=== PATIENT | female | born 2000 | race Caucasian/White ===

== ENCOUNTER 2022-02-07 21:56 | Emergency (ER) | payer SELFPAY ==
[2022-02-08 18:03] LABS: SARS-CoV-2 PCR by NAA DETECTED (NotDetected)
== END 2022-02-07 23:18 | disposition home or self-care (01) ==
LOC: CSHERS 21:56
DX: J06.9 Acute upper respiratory infection, unspecified (principal); R06.02 Shortness of breath; Z20.822 Contact with and (suspected) exposure to COVID-19
CPT/HCPCS: U0003; U0005

== ENCOUNTER 2022-04-30 17:38 | Emergency (ER) | payer SELFPAY ==
[2022-04-30 19:09] LABS: Bilirubin Neg (Negative); Blood, Urine 150 (Negative); Clarity Cloudy (Clear); Glucose, Urine (Dipstick) Normal (Negative); Ketone, Urine Negative (Negative); Leukocyte 500 (Negative); Nitrite Negative (Negative); Protein, Urine (Dipstick) 30 mg/dl (Neg-Trace); Specific Gravity, Urine 1.025 (1.002-1.036); Urobilinogen Normal mg/dL (Less than 2)
[2022-04-30 19:10] LABS: Pregnancy Test - Urine (BHCG) Negative (Negative)
[2022-04-30 19:11] LABS: Pregu Control Background? CLEAR/WHITE (CLR/WHITE); Pregu Control Bar Appear? YES (CONTROL BAR); Specific Gravity 1.025 (1.002-1.036)
[2022-04-30 19:43] LABS: RBC/HPF 0-3 HPF (0-3); WBC/HPF 21-50 HPF (0-3)
[2022-04-30 19:44] LABS: Bacteria/HPF 3+ HPF (None Seen)
== END 2022-04-30 19:32 | disposition home or self-care (01) ==
LOC: CSHERS 17:38
DX: N39.0 Urinary tract infection, site not specified (principal)
CPT/HCPCS: 81003; 81015; 81025; 87086; 99283

== ENCOUNTER 2023-11-04 15:34 | Emergency (ER) | payer SELFPAY ==
[2023-11-04] MEDS ORDERED: Dexamethasone 10 MG/ML VIAL ONE (17:02)
== END 2023-11-04 17:08 | disposition home or self-care (01) ==
LOC: CSHERS 15:34
DX: J02.9 Acute pharyngitis, unspecified (principal); F17.200 Nicotine dependence, unspecified, uncomplicated
CPT/HCPCS: 87081; 87430; 99283; J1100